=== PATIENT | male | born 1950 | race Caucasian/White ===

== ENCOUNTER → 2017-03-22 | Outpatient (CLI) | payer OTHER, MEDICARE | LOC: FIMAGING 10:52 | PROVIDERS: ATTEND Nurse Practitioner | DX: M54.2 Cervicalgia (principal); R15.9 Full incontinence of feces; R39.81 Functional urinary incontinence; M54.16 Radiculopathy, lumbar region; M48.05 Spinal stenosis, thoracolumbar region; M51.34 Other intervertebral disc degeneration, thoracic region; M51.36 Other intervertebral disc degeneration, lumbar region ==

== ENCOUNTER 2017-03-27 08:40 | Inpatient (IN) | payer OTHER, MEDICARE ==
--- NOTE | 2017-03-27 08:55 | EDPHY ---
H & P Time Seen by Provider: 03/27/17 08:50 HPI/ROS: CHIEF COMPLAINT: Back pain HISTORY OF PRESENT ILLNESS: Patient has history of previous spine surgery. Worsening back pain with MRI on March 22 last week which showed T12-L1 severe central canal stenosis and some progression at C6-7 disc herniation. Patient presents with progressive back pain and worsening bilateral leg weakness. Symptoms severe. He is not currently on any pain medication at home. He does tell me he has been having intermittent urinary and fecal incontinence over last week. REVIEW OF SYSTEMS: Eye: no change in vision ENT: no sore throat Cardiac: no chest pain or syncope Pulmonary: no cough or SOB Abdomen: no vomiting, diarrhea, abdominal pain Musculoskeletal: HPI Skin: no rash Neuro: no headache Constitutional: no fever : See HPI A comprehensive 10 point review of systems is otherwise negative aside from elements mentioned in the history of present illness. PAST MEDICAL HISTORY: Sleep apnea, atrial fibrillation. Previous spine surgery. Diabetes, hypertension, thyroid. Social history: Nonsmoker General Appearance: Alert and conversant, cooperative. Eyes: No scleral icterus. ENT, Mouth: Normal mucous membranes. Respiratory: Normal respiratory effort, breath sounds equal, lungs are clear to auscultation. Cardiovascular: Regular rate and rhythm. Gastrointestinal: Abdomen is soft and non tender. Neurological: Alert and oriented x3. Normally conversant. Patient is ambulatory, has good plantar and dorsiflexion of both ankles. Does not have patellar reflexes. Toes are downgoing bilaterally. Skin: Warm and dry, no rashes. Musculoskeletal: No peripheral edema and no joint swelling. Psychiatric: Not agitated. Emergency Department course/MDM: [facility] 915; [facility] neurosurgery 916. Plan to admit with Neurosurgery consultation for worsening pain and neurologic symptoms and abnormal MRI. Patient declined pain medication. Smoking Status: Former smoker Constitutional: Initial Vital Signs Temperature (C) 36.6 C 03/27/17 08:45 Heart Rate 63 03/27/17 08:45 Respiratory Rate 18 03/27/17 08:45 Blood Pressure 181/98 H 03/27/17 08:45 O2 Sat (%) 96 03/27/17 08:45 O2 Delivery Mode Room Air Allergies/Adverse Reactions: droperidol [From Inapsine] Allergy (Severe, Verified 03/27/17 08:41) SEIZURE Penicillins Allergy (Severe, Verified 03/27/17 08:41) Anaphylaxis levofloxacin [From Levaquin] Allergy (Verified 03/27/17 11:42) Swelling/neck,face,throat Home Medications: Medication Instructions Recorded Aspirin [Aspirin 81mg (*)] 81 mg PO DAILY 07/25/15 Atorvastatin Calcium [Lipitor 40 40 mg PO HS 07/25/15 mg (*)] Levothyroxine [Synthroid 150 mcg 150 mcg PO DAILY06 07/25/15 (*)] Multivitamins [Multivitamin (*)] 1 each PO DAILY 07/25/15 [place]-3 Fatty Acids [Fish Oil 1000 1,000 mg PO DAILY 07/25/15 mg (*)] Tamsulosin HCl [Flomax 0.4 MG (*)] 0.8 mg PO HS 07/25/15 Zolpidem Tartrate [Ambien 10 mg] 10 mg PO HS PRN 07/25/15 Acetaminophen [Tylenol 325mg (*)] 650 mg PO QID PRN #0 tab 07/30/15 Carvedilol [Coreg (*)] 3.125 mg PO BIDMEAL #0 tab 07/30/15 Chlorthalidone [Chlorthalidone 25 25 mg PO DAILY #0 tab 07/30/15 mg (*)] Amiodarone HCl [Pacerone] 50 mg PO HS 03/27/17 Ascorbic Acid [Vitamin C 500 mg 1,000 mg PO DAILY 03/27/17 (*)] Lisinopril [Zestril 10 mg (*)] 10 mg PO HS 03/27/17 Potassium Cl [Klor-Con 20 meq (*)] 20 meq PO BID 03/27/17 methylPREDNISolone 4 mg PO AD 03/27/17 [Methylprednisolone] Medical Decision Making Differential Diagnosis: Differential for back pain considered including but not limited to spinal stenosis, disc herniation, musculoskeletal, spinal fracture or dislocation Departure - Departure Disposition: [facility] In[facility] Acute Clinical Impression: Spinal stenosis Qualifiers: Spinal region: unspecified Qualified Code(s): M48.00 - Spinal stenosis, site unspecified Condition: Good
--- NOTE | 2017-03-27 11:15 | NEUSURGPN ---
Assessment/Plan: 66 yr old gentleman with urinary and fecal incontinence, T10-11, T12-L1 stenosis Plan: -Please see full dictated consult when available -Dr Eugene will take patient to surgery for T10-11, T12-L1 laminectomy this afternoon around 430 -Keep patient NPO -Discussed plan with Dr Eugene who will be by to see patient this afternoon prior to surgery Subjective: patient has neck pain Objective: PERRLA EOMI CN 2-12 grossly intact 5/5 BUE, BLE No hoffmans Neuro Check Frequency: per routine Urinary Catheter in Place: No - Physician Discussed Patient with Dr.: Eugene Neurosurgery Physical Exam - Vitals, I&O, Labs Vital Signs Temp Pulse Resp BP Pulse Ox 36.4 C 62 16 164/101 H 97 03/27/17 10:23 03/27/17 10:23 03/27/17 10:23 03/27/17 10:23 03/27/17 10:23 ICD10 Worksheet Patient Problems: Problems Problem Status Onset Spinal stenosis Acute A-fib Acute CHF (congestive heart failure) Acute Pneumonia Acute Systolic heart failure Acute
[2017-03-27] MEDS ORDERED: ACETAMINOPHEN 325 MG TAB PO PRN (12:01)
[2017-03-27] MEDS ORDERED: NON-FORMULARY NEW DRUG (Zolpidem Tartrate [Ambien 10 Mg] 10 MG) PO PRN (12:01)
[2017-03-27] MEDS ORDERED: LORazepam 1 MG TAB PO PRN (12:10)
--- NOTE | 2017-03-27 12:40 | GHP ---
[f rep st] HISTORY AND PHYSICAL DATE OF ADMISSION: 03/27/2017 REASON FOR ADMISSION: Progressive spinal symptoms. HISTORY OF PRESENT ILLNESS: The patient is a 66-year-old male who has had increasing concerning symp toms relating to his cervical spine and lower thoracic spine stenoses. He has had urinary incontinen ce, stool incontinence, some peripheral neuropathy, and increasing pain in his cervical spine. He ayala s had consultation with Dr. Lester, his PA Shabnam Keita, and now Dr. Eugene. Given his increasin g symptomatology, he went to the emergency room this morning. He has been admitted and is anticipati ng having spinal surgery to decompress the lower thoracic lesions later today. He has a history of a trial fibrillation with rapid ventricular rate, leading to reduced ejection fraction. This has been stabilized. He has been confirmed to be out of atrial fibrillation. He is no longer on anticoagulan ts, and his ejection fraction has normalized. He has a history of treated hepatitis C, hypertension, diabetes, dyslipidemia, prior lumbar spine surgery, sleep apnea, hypothyroid, BPH, insomnia. ALLERGIES: Droperidol, penicillin, levofloxacin. CURRENT MEDICATIONS: Updated as per chart. PAST SURGICAL HISTORY: Lumbar spine decompression at several levels, previous cervical spine surgery with Dr. Lester. REVIEW OF SYSTEMS: He denies fever, chills, or sense of upper respiratory infection. Denies any acu te dental complaints. His C-spine pain and reduced range of motion has improved dramatically with th e addition of the Medrol Dosepak, which was started on Saturday. He denies shortness of breath, cough, wheeze or congestion. No sense of heart rate irregularity. No chest pain or chest pressure. He is hungry, but is fasting. No acute abdominal pain. Loose stool and stool incontinence is a stable fe ature. Urinary symptoms with urinary incontinence are also stable. He did have increased thirst, li dayton related to his steroids, with increased urinary output over the weekend. He feels there is numb ness and tingling on the plantar surface of both feet. He does not state any clear lower extremity w eakness at this point. PHYSICAL EXAM: VITAL SIGNS: Blood pressure between 155/92 to 181/98, heart rate in the 60s and regu lar, respiratory rate 16, saturation on room air 95% to 97%. He is afebrile. GENERAL: Pleasant, al ert male, resting comfortably in bed. HEENT: Unremarkable. Oropharynx benign. NECK: Without shana s. LUNGS: Clear without crackles, wheeze or congestion. HEART: Regular rate and rhythm without mu rmur, rub, or gallop. ABDOMEN: Positive bowel sounds. Soft, nontender. Mild central adiposity. N o guarding or rebound. RECTAL: Exam is deferred. : Exam deferred. SKIN: Warm, dry, intact. L OWER EXTREMITIES: Without edema. 2/4 DP and PT pulses are appreciated. MRIs discussed with neurosurgery. He has significant stenosis in his cervical and lower thoracic spi ne. Given his current symptoms, surgery is planned for later today. ASSESSMENT: Severe cord stenosis with urinary incontinence and bowel incontinence. PLAN: 1. For surgery with Dr. Eugene later today, evaluation is still pending. 2. Tight cervical spine stenosis. Anticipated surgery in the future for this area with Dr. Lester. 3. Diabetes, currently well controlled. 4. Blood pressure is elevated. We will follow, adjust medications as necessary as surgery is perfor med, and then watch him through the postoperative period. With respect to pain management, will add pain medications as needed. He is currently moderately comfortable. Previous fairly significant C-s pine pain has improved. He historically has not taken pain medications for much in the past, and we will see how he does with surgery. /[id number]/MODL
--- NOTE | 2017-03-27 15:16 | GCON ---
[f rep st] CONSULTATION EMERGENCY ROOM CONSULTATION CHIEF COMPLAINT: Urinary and fecal incontinence, bilateral upper extremity weakness. HISTORY OF PRESENT ILLNESS: The patient is a 66-year-old gentleman with a history of an ACDF of C5-6 in 2004 and bilateral L3-4 and L5 decompression surgery in 2005, all with Dr Lester. He also has a more recent history of an L5 -S1 microdiskectomy. Over the course of several weeks, he has been having progressive symptoms with urinary and fecal incontinence. He underwent a colonoscopy in December and states his GI doctor had noted that he did not have good rectal tone. He feels his penis and scrotum are shrinking in size and he does have some numbness in his groin area. The patient also notes some lack of coordination with fine motor movement in his bilateral upper hands and states that he is unable to open a bottle of water. The patient has a history of a T11 fracture in 1998. He has generalized weakness in his bilateral lower extremities and dysesthesias on the ball of his left foot. The patient was seen in the office both by Dr. Lester last week and Dr. Eugene 2 days ago to review his urgent MRIs of his cervical, thoracic, and lumbar spine that were performed on Saturday, March 22, 2017. The patient was scheduled to follow up with Dr. Arroyo with Neurology for issues with swallowing as well as an EMG study on his bilateral upper extremities. He was to be placed on the surgery schedule within the next 2 weeks for a thoracic decompression surgery, but came into the emergency department this morning with progressive symptoms. REVIEW OF SYSTEMS: A 10-point review of systems was performed and negative aside for what was mentioned in the HPI. PAST MEDICAL HISTORY: Spinal stenosis, hypertension, diabetes, dyslipidemia, sleep apnea, hypothyroid, BPH, insomnia, history of treated hepatitis C, past history of atrial fibrillation. He is no longer in atrial fibrillation or on anticoagulants. PAST SURGICAL HISTORY: ACDF C5-6 in 2004; bilateral L3-4, L4-5 decompression in 2005; L5-S1 microdiskectomy; T11 compression fracture in 1998. FAMILY HISTORY: The patient denies any family history of spinal stenosis. SOCIAL HISTORY: The patient is a . Does not drink alcohol, use tobacco products, or do illicit drugs. MEDICATIONS: 1. Aspirin 81 mg. Patient stopped this medication on March 22. 2. Levothyroxine 150 mcg. 3. Carvedilol 3.125 mg. 4. Potassium 20 mEq. 5. Chlorthalidone 25 mg tablet. 6. Amiodarone 50 mg. 7. Lisinopril 10 mg. 8. Atorvastatin 40 mg. 9. Tamsulosin 0.4 mg 2 times a day. 10. Ambien 10 mg as needed. ALLERGIES: Droperidol, penicillin, levofloxacin. PHYSICAL EXAMINATION: VITAL SIGNS: Blood pressure is 155/92, heart rate is 66 , respiratory rate 16, oxygen saturations 95% on room air. HEENT: Head is normocephalic and atraumatic. Pupils are equal, round, and reactive to light. EOMI is intact. Full visual mcnamara by confrontation. Ears are patent. Nose is patent. RESPIRATORY: Deferred. CARDIAC: Deferred. ABDOMEN: Soft, nontender. GENITOURINARY: Deferred. RECTAL: Deferred. NEUROLOGIC: The patient is awake, alert, and oriented to name, place, location, date, time, and situation. Memory is intact to immediate, past, and current events. Speech: There is no aphasia or dysphonia. Cranial nerves 2-12 are grossly intact. Motor: The patient has 5/5 strength in all muscle groups in bilateral upper and lower extremities to include the deltoids, biceps, triceps, brachioradialis , wrist flexion, extensors, department mgr, intrinsic fingers, iliopsoas, quadriceps, hamstring, plantarflexion, dorsiflexion, EHL testing. Sensation is grossly intact to light touch throughout all dermatomal distributions in bilateral lower extremities and upper extremities. Reflexes: Biceps, triceps, brachioradialis, knee jerk and ankle jerk are 2+/4. Toes are downgoing bilaterally. Maryjane sign is negative. Babinski is negative. There is no evidence of clonus. DIAGNOSTICS: MRI of the lumbar spine performed on March 22, 2017, demonstrates multilevel degenerative diseases, with the worst central canal stenosis being at T12-L1 at the level of the distal thoracic cord, and the worst foraminal stenosis on the left at L4-5 and on the right at L5-S1. Thoracic MRI performed on March 22, 2017 demonstrates thoracic kyphosis with an old moderate T11 compression deformity, which is stable, with chronic degenerative changes, which is slightly progressed at T10-11. There is progressive Schmorl's node defect involving the inferior cortex of T8, where there is some residual bone marrow edema. Cervical spine MRI performed without contrast March 22, 2017, demonstrates fused and stable at C5 and 6, with progressive degenerative disk disease at C6-7 and increased spinal stenosis at that level. 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 ASSESSMENT AND PLAN: The patient is a 66-year-old gentleman who was recently seen in our office for progressing urinary and fecal incontinence and underwent MRI of the cervical, thoracic and lumbar spine on March 22, 2017. The patient was seen by Dr. Eugene in the office 2 days ago, who suggested decompression surgery at T10-11, T12-L1 within the next 2 weeks. The patient was referred to see Dr. Arroyo with Neurology to evaluate other symptoms with weakness and dysesthesias in his hands, difficulty swallowing, and trouble with his balance. The patient does have some known cervical disease as well, but we would like Neurology's opinion before considering surgery there. The patient presented to the emergency room this morning with progressive incontinence of urinary and stool, and we will place him on a schedule this afternoon. The patient is scheduled for a T10-11 and T12-L1 decompression to free up the nerves where the conus terminates. The stenosis at this level could be contributing to his bowel and bladder as well as his saddle anesthesia. Patient is being admitted by [facility] [place], and we appreciate his input on his medical management. Dr. Eugene will be by this afternoon to speak with the patient about surgery. We will keep him n.p.o. today and plan for surgery around 4:30 this afternoon. The patient understands all the risks and benefits , and would like to proceed. I saw and examined the patient in the Emergency Department this morning at 0950. Dr Eugene saw patient in hospital later today. /[id number]/MODL MTDD
[2017-03-27] MEDS ORDERED: LR 1,000 ML IV ONE (15:19)
[2017-03-27 15:23] LABS: HEMOGLOBIN 15.9 g/dL (13.7-17.5); MEAN CELL HEMOGLOBIN 32.9 pg (27.9-34.1); MEAN CELL HEMOGLOBIN CONCENTR. 36.1 g/dL (32.4-36.7); MEAN CELL VOLUME 90.9 fL (81.5-99.8); RED BLOOD CELL COUNT 4.84 10^6/uL (4.40-6.38); RED CELL DISTRIBUTION WIDTH 12.4 % (11.5-15.2)
[2017-03-27 15:28] LABS: ALANINE AMINOTRANSFERASE 49 IU/L (21-72); ALBUMIN 4.2 g/dL (3.5-5.0); ALKALINE PHOSPHATASE 76 IU/L (38-126); ANION GAP 12 mEq/L (8-16); ASPARTATE AMINOTRANSFERASE 36 IU/L (17-59); BILIRUBIN,TOTAL 0.7 mg/dL (0.1-1.4); CALCIUM 9.5 mg/dL (8.5-10.4); CARBON DIOXIDE 25 mEq/l (22-31); CHLORIDE 96 mEq/L (97-110); CREATININE 0.7 mg/dL (0.7-1.3); GLOMERULAR FILTRATION RATE > 60; GLUCOSE 115 mg/dL (70-100); POTASSIUM 3.7 mEq/L (3.5-5.2); SODIUM 133 mEq/L (134-144); TOTAL PROTEIN 7.2 g/dL (6.3-8.2)
[2017-03-27] MEDS ORDERED: BUPIVACAINE 0.25% 30 ML SDV ONE (15:46)
[2017-03-27] MEDS ORDERED: DEPO METHYLPREDNISOLONE 40 MG/ML SDV ONE (15:48)
[2017-03-27] MEDS ORDERED: THROMBIN (BOVINE) 5,000 UNIT VIAL TP ONE ×2 (15:48→19:08)
[2017-03-27] MEDS ORDERED: CHLORHEXIDINE GLUC HIBICLENS 118 ML BTL TP ONE (15:48)
[2017-03-27] MEDS ORDERED: BACITRACIN 50,000 UNITS/10 ML SYR IRR ONE ×2 (15:49→16:45)
[2017-03-27 15:53] LABS: INR 1.07 (0.83-1.16); PROTIME(PATIENT) 13.8 SEC (12.0-15.0)
[2017-03-27 15:54] LABS: APTT 27.7 SEC (23.0-38.0)
--- NOTE | 2017-03-27 16:26 | PDANEPAE ---
ANE History of Present Illness laminectomy T11-12, L1-2, ANE Past Medical History - Cardiovascular History Hx Hypertension: Yes Hx Arrhythmias: Yes Hx Chest Pain: No Hx Coronary Artery / Peripheral Vascular Disease: No Hx Palpitations: No Cardiovascular History Comment: Hx of paroxysmal atrial fibrillation, s/p CV. - Pulmonary History Hx COPD: No Hx Asthma/Reactive Airway Disease: No Hx Oxygen in Use at Home: No Hx Sleep Apnea: Yes Sleep Apnea Screening Result - Last Documented: Positive - Endocrine History Hx Diabetes: Yes Hypothyroid: Yes Hyperthyroid: No Obesity: moderate Endocrine History Comment: DM , diet controlled - Renal History Hx Renal Disorders: Yes Renal History Comment: BPH - Liver History Hx Hepatic Disorders: No - Neurological & Psychiatric Hx Hx Neurological and Psychiatric Disorders: No - Cancer History Hx Cancer: No - GI History GERD: no Hx Gastrointestinal Disorders: No - Chronic Pain History Chronic Pain: Yes ANE Review of Systems Review of Systems: ANE Patient History - Allergies Allergies/Adverse Reactions: droperidol [From Inapsine] Allergy (Severe, Verified 03/27/17 08:41) SEIZURE Penicillins Allergy (Severe, Verified 03/27/17 08:41) Anaphylaxis levofloxacin [From Levaquin] Allergy (Verified 03/27/17 11:42) Swelling/neck,face,throat - Home Medications Home Medications: Aspirin [Aspirin 81mg (*)] 81 mg PO DAILY 07/25/15 [Last Taken 03/22/17] Atorvastatin Calcium [Lipitor 40 mg (*)] 40 mg PO HS 07/25/15 [Last Taken 18:00] Levothyroxine [Synthroid 150 mcg (*)] 150 mcg PO DAILY06 07/25/15 [Last Taken 04:15] Multivitamins [Multivitamin (*)] 1 each PO DAILY 07/25/15 [Last Taken 03/27/17 04:00] [place]-3 Fatty Acids [Fish Oil 1000 mg (*)] 1,000 mg PO DAILY 07/25/15 [Last Taken 03/27/17 04:00] Tamsulosin HCl [Flomax 0.4 MG (*)] 0.8 mg PO HS 07/25/15 [Last Taken 03/26/17 18 :00] Zolpidem Tartrate [Ambien 10 mg] 10 mg PO HS PRN 07/25/15 [Last Taken 03/26/17 19:30] Amiodarone HCl [Pacerone] 50 mg PO HS 03/27/17 [Last Taken 03/26/17 18:00] Ascorbic Acid [Vitamin C 500 mg (*)] 1,000 mg PO DAILY 03/27/17 [Last Taken 04:00] Lisinopril [Zestril 10 mg (*)] 10 mg PO HS 03/27/17 [Last Taken 03/26/17 18:00] Potassium Cl [Klor-Con 20 meq (*)] 20 meq PO BID 03/27/17 [Last Taken 03/27/17 04:00] methylPREDNISolone [Methylprednisolone] 4 mg PO AD 03/27/17 [Last Taken 04:00] - NPO status NPO Since - Liquids (Date): 03/27/17 NPO Since - Liquids (Time): 05:00 NPO Since - Solids (Date): 03/27/17 NPO Since - Solids (Time): 05:00 - Anes Hx Anes Hx: no prior problems - Smoking Hx Smoking Status: Former smoker Marijuana use: No - Alcohol Use Alcohol Use: None - Family Anes Hx Family Anes Hx: none ANE Labs/Vital Signs - Labs Result Diagrams: 03/27/17 09:20 03/27/17 09:20 - Vital Signs Blood Pressure: 160/95 Heart Rate: 60 Respiratory Rate: 16 O2 Sat (%): 92 Height: 190.5 cm Weight: 113.398 kg ANE Physical Exam - Airway Neck exam: decreased ROM (chronic neck pain) Mallampati Score: Class 2 Mouth exam: normal dental/mouth exam - Pulmonary Pulmonary: clear to auscultation - Cardiovascular Cardiovascular: regular rate and rhythym - ASA Status ASA Status: II ANE Anesthesia Plan Anesthesia Plan: general endotracheal anesthesia
[2017-03-27] MEDS ORDERED: MIDAZOLAM 2 MG/2 ML VIAL IVP ONE (16:33)
[2017-03-27] MEDS ORDERED: DEXAMETHASONE 4 MG/ML VIAL ONE (16:38)
[2017-03-27] MEDS ORDERED: ROCURONIUM 50 MG/5 ML VIAL ONE (16:38)
[2017-03-27] MEDS ORDERED: fentaNYL 250 MCG/5 ML INJ ONE (16:38)
[2017-03-27] MEDS ORDERED: PROPOFOL/EMULSION 500 MG/50 ML BOTTLE IV ONE ×2 (16:38→18:07)
[2017-03-27] MEDS ORDERED: KETAMINE 100 MG/10 ML SYR ONE (16:38)
[2017-03-27] MEDS ORDERED: CLINDAMYCIN 900 MG/DEXTROSE/50 ML BAG IV ONE (17:12)
[2017-03-27] MEDS ORDERED: PHENYLEPHRINE HCL 100 MCG/ML SYR ONE (17:31)
[2017-03-27] MEDS ORDERED: GLYCOPYRROLATE 0.2 MG/1 ML VIAL ONE (17:44)
[2017-03-27] MEDS ORDERED: PHENYLEPHRINE 10 MG/ML SDV ONE (17:44)
[2017-03-27] MEDS ORDERED: CLINDAMYCIN 900 MG/DEXTROSE 50 ML IV ONE (17:45)
[2017-03-27] MEDS ORDERED: SURGIFLO MATRIX KIT WITH THROMBIN TP ONE ×3 (18:44→19:07)
[2017-03-27] MEDS ORDERED: ONDANSETRON 4 MG/2 ML VIAL ONE (19:24)
[2017-03-27] MEDS ORDERED: ONDANSETRON 4 MG/2 ML VIAL IVP PRN ×2 (19:57→20:03)
[2017-03-27] MEDS ORDERED: NALOXONE HCL 0.4 MG/ML INJ IVP PRN (19:57)
[2017-03-27] MEDS ORDERED: ONDANSETRON DISINTEGRATING 4 MG TAB PO PRN (20:03)
[2017-03-27] MEDS ORDERED: LACTULOSE 20 GM/30 ML UDCUP PO PRN (20:03)
[2017-03-27] MEDS ORDERED: morphINE PCA 30 MG/30 ML PCA IV PRN (20:03)
[2017-03-27] MEDS ORDERED: diphenhydrAMINE 25 MG CAP PO PRN (20:03)
[2017-03-27] MEDS ORDERED: BISACODYL 10 MG SUPP PR PRN (20:03)
[2017-03-27] MEDS ORDERED: MAGNESIUM HYDROXIDE 30 ML UDCUP PO PRN (20:03)
[2017-03-27] MEDS ORDERED: HYDROmorphONE/DILAUDID 1 MG/ML INJ ONE (20:13)
[2017-03-27] MEDS ORDERED: fentaNYL 100 MCG/2 ML INJ ONE (20:13)
[2017-03-27] MEDS: fentaNYL 100 MCG/2 ML INJ IVP PRN ×2 (20:14→20:33)
--- NOTE | 2017-03-27 20:14 | POSTOPPROG ---
Post Op Note Date of Operation: 03/27/17 Surgeon: Kenny Eugene Laborer Wharf: Sesar Stewart Anesthesiologist: Jorje Mckenzie Anesthesia: GET(General Endotracheal) Pre-op Diagnosis: T10/11 and T12/L1 stenosis Post-op Diagnosis: Same Indication: urinary and fecal incontinence Procedure: T10/11 and T12/L1 laminectomies Findings: severe stenosis Inf/Abcess present in the surg proc area at time of surgery?: No EBL: 50-100 Total fluids administered: 600ml Complications: none Drains: Luis Carrasco (to bulb suction)
[2017-03-27] MEDS ORDERED: NS W/ 20 KCl/L 1,000 ML IV SCH (20:15)
--- NOTE | 2017-03-27 20:16 | SOAPPROG ---
SOAP Progress Note Assessment/Plan: POST OP CHECK: Assessment: doing well sp T10/11 and T12/L1 laminectomy Plan: CPM in PACU transfer to floor per protocol PALMIR[place] to bulb suction 03/27/17 20:14 Subjective: Awake, alert following commands Objective: Vital Signs Temp Pulse Resp BP Pulse Ox 36.4 C 60 16 160/95 H 92 03/27/17 16:43 03/27/17 16:43 03/27/17 16:43 03/27/17 16:43 03/27/17 16:43 PT 13.8 SEC (12.0-15.0) 03/27/17 09:30 INR 1.07 (0.83-1.16) 03/27/17 09:30 Neuro: MARIE to command sensation +LT Vitals: BP: 131/79 HR: 6 O2: 99% face mask ICD10 Worksheet Patient Problems: Problems Problem Status Onset Spinal stenosis Acute A-fib Acute CHF (congestive heart failure) Acute Pneumonia Acute Systolic heart failure Acute
[2017-03-27] MEDS: HYDROmorphONE/DILAUDID 1 MG/ML INJ IVP PRN ×2 (20:17→20:34)
--- NOTE | 2017-03-27 20:37 | POSTANESTH ---
Post Anesthetic Evaluation Cardiovascular Status: Similar to Pre-Op Cond Respiratory Status: Similar to Pre-op Cond. Level of Consciousness/Mental Status: Can Participate in Eval Pain Control: Adequate, Prn Tx Ordered Nausea/Vomiting Control: Adequate, Prn Tx Ordered Complications Possibly Related to Anesthesia: None Noted
[2017-03-27] MEDS ORDERED: DIAZEPAM 10 MG/2 ML SYR IVP PRN (20:55)
[2017-03-27] MEDS ORDERED: AMIODARONE HCL PO SCH (21:00)
[2017-03-27] MEDS ORDERED: DIAZEPAM 10 MG/2 ML SYR ONE (21:01)
[2017-03-27] MEDS: LISINOPRIL 10 MG TAB PO SCH (22:43)
[2017-03-27] MEDS: TAMSULOSIN HCL 0.4 MG CAP PO SCH (22:43)
[2017-03-27] MEDS: AMIODARONE HCL 200 MG TAB PO SCH (22:43)
[2017-03-27] MEDS: ATORVASTATIN CALCIUM 40 MG TAB PO SCH (22:43)
[2017-03-27] MEDS: SENNOSIDES/DOCUSATE SODIUM TAB PO SCH (22:44)
[2017-03-27] MEDS: ZOLPIDEM TARTRATE 5 MG TAB PO PRN (22:44)
[2017-03-27] MEDS: POTASSIUM CL 20 MEQ TAB PO SCH (22:44)
[2017-03-27] MEDS: morphINE SR 15 MG TAB PO SCH (22:44)
[2017-03-27] MEDS: POLYETHYLENE GLYCOL 3350 17 GM PKT PO SCH (22:44)
[2017-03-27] MEDS: FAMOTIDINE 20 MG TAB PO SCH (22:44)
[2017-03-28] MEDS: CARVEDILOL 3.125 MG TAB PO SCH ×3 (00:56→16:45)
[2017-03-28] MEDS: CLINDAMYCIN 900 MG/DEXTROSE 50 ML IV SCH ×2 (03:10→12:11)
[2017-03-28] MEDS: oxyCODONE IR 5 MG TAB PO PRN ×5 (03:32→21:33)
[2017-03-28] MEDS: METHOCARBAMOL 750 MG TAB PO PRN ×3 (03:32→21:33)
[2017-03-28 04:49] LABS: % IMMATURE GRANULYOCYTES 0.6 % (0.0-1.1); ABSOLUTE IMMATURE GRANULOCYTES 0.07 10^3/uL (0.00-0.10); ADD DIFF? NO; ADD MORPH? NO; ADD SCAN? NO; ATYPICAL LYMPHOCYTE FLAG 0 (0-99); FRAGMENT RBC FLAG 0 (0-99); LEFT SHIFT FLG 0 (0-99); LIPEMIA HEMOLYSIS FLAG 90 (0-99); MEAN CELL HEMOGLOBIN 32.6 pg (27.9-34.1); MEAN CELL VOLUME 93.2 fL (81.5-99.8); MEAN PLATELET VOLUME 9.9 fL (8.7-11.7); PLATELET CLUMPS FLAG 0 (0-99); PLATELET COUNT 205 10^3/uL (150-400); RED BLOOD CELL COUNT 4.29 10^6/uL (4.40-6.38); RED CELL DISTRIBUTION WIDTH 12.7 % (11.5-15.2)
[2017-03-28 05:10] LABS: ANION GAP 10 mEq/L (8-16); CALCIUM 8.6 mg/dL (8.5-10.4); CARBON DIOXIDE 26 mEq/l (22-31); CHLORIDE 97 mEq/L (97-110); CREATININE 0.8 mg/dL (0.7-1.3); GLOMERULAR FILTRATION RATE > 60; GLUCOSE 157 mg/dL (70-100); POTASSIUM 3.5 mEq/L (3.5-5.2); SODIUM 133 mEq/L (134-144)
[2017-03-28] MEDS: LEVOTHYROXINE 150 MCG TAB PO SCH (06:15)
[2017-03-28] MEDS: ENOXAPARIN 40 MG/0.4 ML SYR SC SCH (08:02)
[2017-03-28] MEDS: CHLORTHALIDONE 25 MG TAB PO SCH (08:03)
[2017-03-28] MEDS: OMEGA-3 FATTY ACIDS 1,000 MG CAP PO SCH (08:03)
[2017-03-28] MEDS: ASCORBIC ACID 500 MG TAB PO SCH (08:04)
[2017-03-28] MEDS: FAMOTIDINE 20 MG TAB PO SCH ×2 (08:04→20:13)
[2017-03-28] MEDS: POTASSIUM CL 20 MEQ TAB PO SCH ×2 (08:04→20:13)
[2017-03-28] MEDS: morphINE SR 15 MG TAB PO SCH ×2 (08:04→20:12)
[2017-03-28] MEDS: ASPIRIN 81 MG CHEWABLE TAB PO SCH (08:06)
[2017-03-28] MEDS: POLYETHYLENE GLYCOL 3350 17 GM PKT PO SCH ×3 (08:06→20:14)
[2017-03-28] MEDS: MULTIVITAMINS 1 EACH TAB PO SCH (08:06)
[2017-03-28] MEDS: SENNOSIDES/DOCUSATE SODIUM TAB PO SCH ×2 (08:29→20:13)
--- NOTE | 2017-03-28 10:34 | NEUSURGPN ---
Date of Surgery: 03/27/17 Post Op Day: 1 Assessment/Plan: 66 yr old gentleman with urinary and fecal incontinence, s/pT10-11, T12-L1 POD#1 Plan: -PT/OT eval/treat -Patient reports improvement with urination this am, overall pleased with surgical results thus far -Patient scheduled to get MRI brain today, will have him follow up with Dr Arroyo/ neurology next week regarding cervical spine/EMG BUE -Will leave [place]A in today, plan to dc tomorrow -Patient working on pain management and ambulation, will keep in hospital today -Discussed plan with Dr Eugene Subjective: Patient with incisional pain Objective: PERRLA AxO x3 bilateral df 4/5 right ta 4/5 sensation intact to lt touch BLE Dressing CDI APLMIRA patent Neuro Check Frequency: per routine Urinary Catheter in Place: No - Physician Discussed Patient with : Valorie Neurosurgery Physical Exam - Vitals, I&O, Labs I and O 03/27/17 03/28/17 03/29/17 05:59 05:59 05:59 Intake Total 1867 250 Output Total 150 70 Balance 1717 180 Weight 113.398 kg Intake: Oral (ml) 300 250 IV Intake (ml) 850 IV Infused (ml) 717 Clindamycin 900 mg/ 50 Dextrose 50 ml @ 100 mls/ hr IV Q8H YAS Rx#: [id number] NS W/ 20 KCl/L 1,000 ml @ 667 100 mls/hr IV CONT YAS Rx#:[id number] Output: Estimated Blood Loss (ml) 100 [place]A Drain Output (ml) 50 70 Back Luis Carrasco 50 70 Other: Number of Voids Toilet 1 1 Vital Signs Temp Pulse Resp BP Pulse Ox 36.7 C 80 16 97/60 L 93 03/28/17 07:26 03/28/17 08:05 03/28/17 07:26 03/28/17 08:05 03/28/17 07:26 Laboratory Results 03/28/17 04:26 03/28/17 04:26 ICD10 Worksheet Patient Problems: Problems Problem Status Onset Spinal stenosis Acute A-fib Acute CHF (congestive heart failure) Acute Pneumonia Acute Systolic heart failure Acute
--- NOTE | 2017-03-28 11:44 | SOAPPROG ---
SOAP Progress Note Assessment/Plan: Assessment: 66 yo male s/p T10-11, T12-L1 abel POD #1 -Doing really well - has worked w/ PT and OT this am - feels pretty worn out and in some pain after this but is very pleased w/ his bladder improvement already and he feels like sensation is better in lower extremities. He will likely d/c to home tomorrow per N-S. Pain has been under good control - currently hurting b/c just finished PT/OT and is requesting meds to help w/ this. PALMIRA in place. Getting brain MRI today, further w/u w/NS and neuro for cervical spine ds - has f/u next week w/ Dr Arroyo. Cont w/ prn morphine, robaxin and is getting celebrex as well. -HTN - bp this am on lower side but traditionally higher and controlled with chlorthalidone/lisinopril/carvedilol. Will hold if needed if bp too low - expect it to normalize w recovery from surgery. -h/o afib - on rate control w/ carvedilol, amiodarone. Has been in sinus, following. -hypothyroid - cont supplementation -dvt prohp - per NS rec -dispo -likely d/c home tomorrow per NS. 03/28/17 11:48 Subjective: Doing well overall, is pleased w/ outcome already from surgery, in good spirits , reading book Objective: Vital Signs Temp Pulse Resp BP Pulse Ox 36.7 C 80 16 97/60 L 93 03/28/17 07:26 03/28/17 08:05 03/28/17 07:26 03/28/17 08:05 03/28/17 07:26 Laboratory Results 03/28/17 04:26 03/28/17 04:26 03/27/17 03/28/17 03/29/17 05:59 05:59 05:59 Intake Total 1867 250 Output Total 150 70 Balance 1717 180 PT 13.8 SEC (12.0-15.0) 03/27/17 09:30 INR 1.07 (0.83-1.16) 03/27/17 09:30 GEN: pleasant, A&O, reading book, ate breakfast, has been ambulating w/ PT/OT HEENT: perr, eomi Neck: soft supple Chest: CTA B CV: rrr nl s1 s2 Abd: + BS, no flatus yet Ext: no edema, good pulses - Pending Discharge Pending Discharge Within 48 Hours: Yes Pending Discharge Date: 03/30/17 Pending Discharge Time: 11:00 ICD10 Worksheet Patient Problems: Problems Problem Status Onset CHF (congestive heart failure) Acute A-fib Acute Systolic heart failure Acute Pneumonia Acute Spinal stenosis Acute
--- NOTE | 2017-03-28 15:17 | ASMTCMCOM ---
CM Note CM Note Notes: Pt s/p T10-12, L1 lami for lumbar stenosis. PT/OT recommending homecare. Discussed with pt who would prefer not to be homebound but did not rule out having HC. Pt stated he will need at least 2 more surgeries in the future. Encouraged him to discuss with therapists tomorrow and will revisit topic. He will have assistance from his neighbor and mandaen friends. CM to follow for any d/c needs. Date Signed: 03/28/2017 03:16 PM Electronically Signed By:HARLEEN Walter
[2017-03-28] MEDS: LISINOPRIL 10 MG TAB PO SCH (20:11)
[2017-03-28] MEDS: TAMSULOSIN HCL 0.4 MG CAP PO SCH (20:12)
[2017-03-28] MEDS: ATORVASTATIN CALCIUM 40 MG TAB PO SCH (20:12)
[2017-03-28] MEDS: ZOLPIDEM TARTRATE 5 MG TAB PO PRN (20:13)
[2017-03-28] MEDS: AMIODARONE HCL 200 MG TAB PO SCH (20:13)
[2017-03-29] MEDS: METHOCARBAMOL 750 MG TAB PO PRN ×2 (03:48→15:45)
[2017-03-29] MEDS: oxyCODONE IR 5 MG TAB PO PRN ×2 (03:49→15:45)
[2017-03-29 05:00] LABS: % IMMATURE GRANULYOCYTES 0.7 % (0.0-1.1); ABSOLUTE IMMATURE GRANULOCYTES 0.09 10^3/uL (0.00-0.10); ADD DIFF? NO; ADD MORPH? NO; ADD SCAN? NO; ATYPICAL LYMPHOCYTE FLAG 10 (0-99); FRAGMENT RBC FLAG 0 (0-99); LEFT SHIFT FLG 10 (0-99); LIPEMIA HEMOLYSIS FLAG 90 (0-99); MEAN CELL HEMOGLOBIN 34.1 pg (27.9-34.1); MEAN CELL HEMOGLOBIN CONCENTR. 36.8 g/dL (32.4-36.7); MEAN CELL VOLUME 92.5 fL (81.5-99.8); MEAN PLATELET VOLUME 9.6 fL (8.7-11.7); PLATELET CLUMPS FLAG 0 (0-99); PLATELET COUNT 188 10^3/uL (150-400); RED BLOOD CELL COUNT 4.11 10^6/uL (4.40-6.38); RED CELL DISTRIBUTION WIDTH 12.5 % (11.5-15.2)
[2017-03-29 05:18] LABS: ANION GAP 7 mEq/L (8-16); CALCIUM 8.8 mg/dL (8.5-10.4); CARBON DIOXIDE 28 mEq/l (22-31); CHLORIDE 96 mEq/L (97-110); CREATININE 0.7 mg/dL (0.7-1.3); GLOMERULAR FILTRATION RATE > 60; GLUCOSE 121 mg/dL (70-100); POTASSIUM 3.7 mEq/L (3.5-5.2); SODIUM 131 mEq/L (134-144)
[2017-03-29] MEDS: LEVOTHYROXINE 150 MCG TAB PO SCH (06:24)
[2017-03-29] MEDS: CARVEDILOL 3.125 MG TAB PO SCH (08:07)
[2017-03-29] MEDS: OMEGA-3 FATTY ACIDS 1,000 MG CAP PO SCH (08:07)
[2017-03-29] MEDS: MULTIVITAMINS 1 EACH TAB PO SCH (08:07)
[2017-03-29] MEDS: ASCORBIC ACID 500 MG TAB PO SCH (08:07)
[2017-03-29] MEDS: FAMOTIDINE 20 MG TAB PO SCH (08:07)
[2017-03-29] MEDS: POTASSIUM CL 20 MEQ TAB PO SCH (08:19)
[2017-03-29] MEDS: ASPIRIN 81 MG CHEWABLE TAB PO SCH (08:19)
[2017-03-29] MEDS: POLYETHYLENE GLYCOL 3350 17 GM PKT PO SCH ×2 (08:19→15:45)
[2017-03-29] MEDS: CHLORTHALIDONE 25 MG TAB PO SCH (08:20)
[2017-03-29] MEDS: SENNOSIDES/DOCUSATE SODIUM TAB PO SCH (08:20)
[2017-03-29] MEDS: morphINE SR 15 MG TAB PO SCH (08:21)
[2017-03-29] MEDS: ENOXAPARIN 40 MG/0.4 ML SYR SC SCH (08:21)
--- NOTE | 2017-03-29 09:31 | NEUSURGPN ---
Date of Surgery: 03/27/17 Post Op Day: 2 Assessment/Plan: 66 yr old gentleman with several weeks of urinary and fecal incontinence, s/pT10 -11, T12-L1 POD#2 Gene notes improved symptoms and is very pleased. His has other neurologic symptoms we are in the process of working up and treating as well. Ready to go home today Plan: -PT/OT eval/treat for clearance home today -Patient scheduled to get MRI brain today, will have him follow up with Dr Arroyo/ neurology next week regarding cervical spine/EMG BUE -Will d/c drain after MRI today and then discharge home Subjective: Subjective: doing well, no issues Objective: PERRLA AxO x3 bilateral df 4/5 right ta 4/5 sensation intact to lt touch BLE Dressing CDI PALMIRA patent Urinary Catheter in Place: No Neurosurgery Physical Exam - Vitals, I&O, Labs I and O 03/28/17 03/29/17 03/30/17 05:59 05:59 05:59 Intake Total 1867 1450 Output Total 150 1550 Balance 1717 -100 Weight 113.398 kg Intake: Oral (ml) 300 1450 IV Intake (ml) 850 IV Infused (ml) 717 Clindamycin 900 mg/ 50 Dextrose 50 ml @ 100 mls/ hr IV Q8H YAS Rx#: [id number] NS W/ 20 KCl/L 1,000 ml @ 667 100 mls/hr IV CONT YAS Rx#:[id number] Output: Urine (ml) 1350 Urinal 1350 Estimated Blood Loss (ml) 100 PALMIRA Drain Output (ml) 50 200 Back Luis Carrasco 50 200 Other: Number of Voids Toilet 1 1 Urinal 2 Vital Signs Temp Pulse Resp BP Pulse Ox 37.0 C 84 16 102/64 95 03/29/17 08:00 03/29/17 08:07 03/29/17 08:00 03/29/17 08:20 03/29/17 08:00 Laboratory Results 03/29/17 04:50 03/29/17 04:50 ICD10 Worksheet Patient Problems: Problems Problem Status Onset Spinal stenosis Acute A-fib Acute CHF (congestive heart failure) Acute Pneumonia Acute Systolic heart failure Acute
--- NOTE | 2017-03-29 11:33 | ASDISCHSUM ---
Discharge Information Plan Status:Home with No Needs Medically Cleared to Leave:03/28/2017 Discharge Date:03/28/2017 CM D/C Disposition:Home, Routine, Self-Care ADT D/C Disposition:Home, Routine, Self-Care Projected Discharge Date:03/28/2017 Transportation at D/C:Friend Discharge Delay Reason: Follow-Up Date:03/28/2017 Discharge Slot: Final Diagnosis: Placement Information Patient Contact Information Contact Name:MADAY Relationship:Mother Address: City:[place] Alternate Phone: [facility]/Zip Code:[place] [address] Email: Financial Information Financial Class: Primary Plan Desc:MEDICARE INPATIENT Primary Plan Number:[id number] Secondary Plan Desc:[employer]/MDR SUPPLEMENT Secondary Plan Number:[id number] Assessment Information LACE LACE Acuity / Level of Care Answers: Was the patient admitted to hospital via the emergency department? Yes: Emergency dept visits in Answers: 1 last 6 months Score: 4 Date Signed: 03/27/2017 09:35 AM Electronically Signed By:Glo Ballard RN [facility] Progress Note CM Note CM Note Notes: Pt s/p T10-12, L1 lami for lumbar stenosis. PT/OT recommending homecare. Discussed with pt who would prefer not to be homebound but did not rule out having HC. Pt stated he will need at least 2 more surgeries in the future. Encouraged him to discuss with therapists tomorrow and will revisit topic. He will have assistance from his neighbor and gnosticist friends. CM to follow for any d/c needs. Date Signed: 03/28/2017 03:16 PM Electronically Signed By:HARLEEN Walter Intervention Information Intervention Type:*IM-Signed Date of Service:03/29/2017 11:32 AM Patient Type:Inpatient Staff Member:HARLEEN Tolbert Sharon Hours: Discipline: Severity: Comment:
[2017-03-29 12:28] VITALS: BP 109/49; PULSE 70; RESP 18; TEMP 97.5; O2SAT 94
--- NOTE | 2017-04-02 18:31 | GOP ---
[f rep st] OPERATIVE REPORT DATE OF OPERATION: 03/27/2017 SURGEON: Kenny Eugene MD NEUROSURGEON: Kenny Eugene MD. PARACHUTIST/COMBATANT DIVER QUALIFIED: MARTA Winters. ANESTHESIA: GETA. PREOPERATIVE DIAGNOSIS: Severe stenosis at T10-11 and T12-L1, with lower thoracic spinal cord and co nus medullaris compression, with fecal and urinary sales and service change leader the past several weeks, superimposed u gemma a congenitally narrow spinal canal. POSTOPERATIVE DIAGNOSIS: Severe stenosis at T10-11 and T12-L1, with lower thoracic spinal cord and c onus medullaris compression, with fecal and urinary sales and service change leader the past several weeks, superimposed upon a congenitally narrow spinal canal. PROCEDURE PERFORMED: T10-T11 and T12-L1 laminectomies for decompression of the thoracic spinal cord and conus medullaris, with use of neuromonitoring and use of fluoroscopy; less than 1 hour physician time. FINDINGS: Well-decompressed spinal canal at T10-11, T12-L1, with repetitive use of fluoroscopy to en sure the appropriate level. SPECIMENS: None. ESTIMATED BLOOD LOSS: 250 cc. INDICATIONS: The patient is a very pleasant 66-year-old male, who was referred to me by my partner, Dr. Ernesto Lester, for concerns of thoracic spinal cord compression and conus medullaris compression cau sing fecal and urinary change. The patient has a congenitally narrow spinal canal and multiple areas of compression, and ultimately I felt that his most pressing symptom was his fecal and urinary incon tinence and that the symptomatic vibratory pile driver was due to stenosis in his lower thoracic spine, as opposed t o moderate cervical cord stenosis. I did see him in my office and recommended surgery. He left, sta ting he would think about his options, and then came into the emergency department here at [facility] when h is symptoms persisted, and I took him urgently to the operating room for decompression. We discussed on multiple occasions that he may have more than 1 urologic issue ongoing at this time, but the most pressing matter is to address his fecal and urinary incontinence, and he agreed with this reasoning. The patient was counseled and all questions were answered. Alternatives were discussed. He was ma rked and consented prior to the procedure. DESCRIPTION OF PROCEDURE: The patient was brought into the operating room and a sign-in was performaustin d. He was given 2 g of IV Ancef to prevent postoperative infection. He was smoothly induced under g eneral anesthesia and intubated without difficulty. Appropriate IV access was obtained. Davis lonny ter was placed. Neuromonitoring electrodes were placed and baseline sensory and motors were obtained . SCDs were placed to prevent postoperative DVT. The patient was turned prone onto the Reed frame which was cranked to maximal kyphosis. His midback was washed with chlorhexidine shampoo and rubbin g alcohol, which was allowed to dry. A midline incision was traced. ChloraPrep was used to steriliz e the skin. A sterile field was created with blue towels, Ioban and a sterile surgical drape. The f [facility] was draped sterilely and brought into the field. We took a series of x-rays in the AP and late ral views using a compression fracture at T11 to help us localize, and then we ultimately determined the extent of our midline incision. Prior to beginning the procedure, a time-out was performed in ich all members of Surgery, Anesthesia, and Nursing went over the necessary check list items and agre ed to proceed as one. 20 cc of 0.25% Marcaine with 1:200,000 parts epinephrine was injected along th e planned incision line. I used a #10 scalpel to incise the skin and dermis and subcutaneous fat. Self-retaining retractors w ere placed. Bovie electrocautery was used to split the adipose tissue fascia and paraspinal musculat ure off the spinal column from T10 to L1. A marker was placed and fluoro was brought back into the ield, and we again identified our T10-11 levels and our T12-L1 levels. We then performed laminectomi es at T10-11 and T12-L1, but skipped T11-T12, and left all the spinal elements intact at that level. A Leksell rongeur was used to remove the T10, T11 spinous processes and the T10-11 interspinous liga ment, and also the T12 and L1 spinous processes, and T12-L1 interspinous ligament. A high-speed dril l with a matchstick bur was used to complete the laminectomies at both levels. Blunt dissection was used to dissect the soft tissue and ligamentum flavum up off the spinal cord at both levels. A Delaney valentine rongeur was used to resect the ligamentum flavum. We performed a wide laminectomy at both levels, and confirmed again with fluoroscopy that we had achi eved the adequate decompression based on the appearance of the MRI. We had gone above and below the most severe stenosis at each level, based on our x-rays. Confident that we had performed adequate de compression, we irrigated out the wound copiously with antibiotic solution and achieved hemostasis. I placed a #10 round PALMIRA in the operative bed. I closed the fascia with 0 Vicryl suture. I irrigated the suprafascial compartment. I injected the paraspinal musculature with 0.5% Marcaine for postoper ative analgesia. I closed the dermis with inverted 2-0 pop-off Vicryl sutures. The skin edges approximated well. I c leaned the skin with a wet and dry sponge. I applied a layer of Dermabond. Once this dried, a steri le dressing was placed. The drainage tube was secured and placed the bulb to full compression. The patient was flipped to a supine position, reversed from anesthesia, and extubated without difficulty. All counts were correct. All neuromonitoring signals were stable. I was there for the entirety of the procedure. There were no immediate surgical or anesthetic complications. The patient was taken to recovery area and was found to be in stable medical and neurologic condition. Orders were given for him to go to the floor for standard postoperative spine care. He was grateful for the care I had given him. COMPLICATIONS: None. IMPLANTS: None. /[id number]/MODL
== END 2017-03-29 16:49 | disposition home or self-care (01) | DRG 519 ==
LOC: F3N 10:15
PROVIDERS: ADMIT Internal Medicine; ATTEND Internal Medicine
PROC: 00NX0ZZ Release Thoracic Spinal Cord, Open Approach (ICD-10-PCS; principal; 2017-03-27 17:30)
DX: M48.04 Spinal stenosis, thoracic region (principal); M48.05 Spinal stenosis, thoracolumbar region; G95.81 Conus medullaris syndrome; E87.1 Hypo-osmolality and hyponatremia; E11.9 Type 2 diabetes mellitus without complications; I10 Essential (primary) hypertension; E03.9 Hypothyroidism, unspecified; G47.33 Obstructive sleep apnea (adult) (pediatric); N40.0 Benign prostatic hyperplasia without lower urinary tract symptoms; Z86.19 Personal history of other infectious and parasitic diseases; Z98.1 Arthrodesis status; Z87.891 Personal history of nicotine dependence
CPT/HCPCS: 97161-GP; 97165-GO; 97535-GO; G8978-GP-CI; G8978-GP-CJ; G8979-GP-CI; G8980-GP-CI; G8987-GO-CI; G8988-GO-CI; G8989-GO-CI; J0171; J1030; J1100; J1170; J1650; J2250; J2370; J2405; J2704; J3010

== ENCOUNTER → 2017-04-02 | Outpatient (CLI) | payer OTHER, MEDICARE | LOC: FIMAGING 17:18 | PROVIDERS: ATTEND Neurological Surgery | DX: Z98.1 Arthrodesis status (principal); M54.16 Radiculopathy, lumbar region; M50.320 Other cervical disc degeneration, mid-cervical region, unspecified level ==

== ENCOUNTER → 2017-05-28 | Outpatient (CLI) | payer OTHER, MEDICARE | PROVIDERS: ATTEND Psychiatry & Neurology Neurology | DX: R13.10 Dysphagia, unspecified (principal) | CPT/HCPCS: 74230; 92611; G8996; G8997; G8998 ==

== ENCOUNTER → 2017-10-11 | Outpatient (CLI) | payer OTHER, MEDICARE | LOC: FIMAGING 17:20 | PROVIDERS: ATTEND Physician Assistant | DX: Z98.1 Arthrodesis status (principal) ==

== ENCOUNTER → 2017-11-11 | Outpatient (CLI) | payer OTHER, MEDICARE | LOC: FIMAGING 12:47 | PROVIDERS: ATTEND Nurse Practitioner | DX: M51.36 Other intervertebral disc degeneration, lumbar region (principal); M89.38 Hypertrophy of bone, other site; M48.05 Spinal stenosis, thoracolumbar region; M48.54XA Collapsed vertebra, not elsewhere classified, thoracic region, initial encounter for fracture ==

== ENCOUNTER → 2018-01-23 | Outpatient (CLI) | payer OTHER, MEDICARE | LOC: FIMAGING 14:56 | PROVIDERS: ATTEND Physician Assistant | DX: Z47.89 Encounter for other orthopedic aftercare (principal); Z98.1 Arthrodesis status ==

== ENCOUNTER → 2018-03-17 | Outpatient (CLI) | payer OTHER, MEDICARE | LOC: BMCIMAGING 09:52 | PROVIDERS: ATTEND Physician Assistant | DX: N63.20 Unspecified lump in the left breast, unspecified quadrant (principal); N64.4 Mastodynia ==

== ENCOUNTER → 2018-04-15 | Outpatient (CLI) | payer OTHER, MEDICARE | LOC: FIMAGING 16:57 | PROVIDERS: ATTEND Physician Assistant | DX: Z09 Encounter for follow-up examination after completed treatment for conditions other than malignant neoplasm (principal); Z98.890 Other specified postprocedural states ==

== ENCOUNTER → 2018-06-06 | Outpatient (CLI) | payer OTHER, MEDICARE | LOC: FIMAGING 18:00 | PROVIDERS: ATTEND Physician Assistant | DX: M54.16 Radiculopathy, lumbar region (principal); M48.02 Spinal stenosis, cervical region; M51.26 Other intervertebral disc displacement, lumbar region; M51.37 Other intervertebral disc degeneration, lumbosacral region ==